=== PATIENT | male | born 1955 | race American Indian/Alaskan Native ===

== ENCOUNTER → 2017-01-01 | Outpatient (CLI) | payer BC ==
[~2017-01-01] VITALS: Ht 168.9 cm; Wt 68.0 kg
[~2017-01-01] MED LIST: ALAWAY10 ML BOTH EYES; BENADRYL25 MG PO; CLARITIN5 MG PO; CROMOLYN SODIUM10 ML BOTH EYES; DAILY VITE1 EAC1 PO; DIOVAN160 MG PO; FISH OIL 1,2001 EAC4 PO; LIVALO2 MG PO; LO-DOSE ASPIRIN81 M2 PO; VENTOLIN HFA18 GM IH; ZANTAC150 MG PO
== END | disposition home or self-care (01) ==
LOC: AMB 11-20 11:00
PROC: 0DBK8ZX Excision of Ascending Colon, Via Natural or Artificial Opening Endoscopic, Diagnostic (ICD-10-PCS; principal; 2017-01-01)
DX: Z12.11 Encounter for screening for malignant neoplasm of colon (principal); K63.5 Polyp of colon; K57.30 Diverticulosis of large intestine without perforation or abscess without bleeding; K64.8 Other hemorrhoids; Z83.71 Family history of colonic polyps; K59.00 Constipation, unspecified; J45.909 Unspecified asthma, uncomplicated; N40.0 Benign prostatic hyperplasia without lower urinary tract symptoms; K21.9 Gastro-esophageal reflux disease without esophagitis; Z88.1 Allergy status to other antibiotic agents; Z91.041 Radiographic dye allergy status
CPT/HCPCS: 88305; J2250